=== PATIENT | female | born 1985 | race Caucasian/White ===

== ENCOUNTER → 2021-07-22 | Outpatient (CLI) | payer BC ==
--- NOTE | 2021-07-22 16:49 | Diagnostic Imaging Report ---
INDICATION: Routine screening. TECHNIQUE: Multiple Real-time grayscale images were obtained over the gravid uterus. COMPARISON: None. FINDINGS: A single live intrauterine fetus is in vertex presentation. No abnormalities were demonstrated. Structures visualized included kidney, bladder, stomach, ventricles, brain, four-chamber heart, three-vessel cord, spine, and cord insertion. Amniotic fluid index is normal. Normal heart rate. Biometrical measurements are as follows: Biparietal 4.39 cm, age 19 weeks 2 days. Head circumference 16.86 cm, age 19 weeks 4 days. Abdominal circumference 14.77 cm, age 20 weeks 1 days. Femur length 3.16 cm, age 19 weeks 6 days. Sonographic estimate age: 19 weeks 5 days. Sonographic estimated date of delivery: 12-11-21. Estimated Weight: 318 gm (+/- 47 gm). LMP percentile: <2%. heart rate: 134 beats per minute. number: 1 of 1. IMPRESSION: There is a single live intrauterine fetus. No abnormality is demonstrated. Current biometric measurements are average for a 19 week 5 day . Dictated by: Dictated on workstation # [id number]
== END ==
LOC: RAD 15:15
PROVIDERS: ATTEND Nurse Practitioner Women's Health
DX: Z34.82 Encounter for supervision of other normal pregnancy, second trimester (principal); Z3A.00 Weeks of gestation of pregnancy not specified
CPT/HCPCS: 76805

== ENCOUNTER 2021-12-20 06:28 | Inpatient (IN) | payer BC ==
[~2021-12-20] VITALS: Ht 160 cm; Wt 86.6 kg
[2021-12-20] VITALS (66 sets, daily range): BP systolic 101–158; BP diastolic 51–103
[2021-12-20] MEDS ORDERED: MONT-40 PO (06:47)
[2021-12-20] MEDS ORDERED: SERT-413 PO (06:47)
[2021-12-20] MEDS ORDERED: LEVO100C4 PO (06:47)
[2021-12-20] MEDS ORDERED: PREN-142 PO (06:47)
[2021-12-20] MEDS ORDERED: ACYC400T21 PO (06:47)
[2021-12-20] MEDS ORDERED: OXYTOCIN PRE-MIX DRIP 500 ML IV SCH ×2 (07:00→23:00)
[2021-12-20 07:53] LABS: BASOPHILS % (AUTO) 0 % (0-10); EOSINOPHILS # (AUTO) 0.1 10^3/uL (0.0-0.3); EOSINOPHILS % (AUTO) 1 % (0-10); HEMATOCRIT 35 % (35-52); HEMOGLOBIN 12.2 g/dL (11.5-16.0); LYMPHOCYTES # (AUTO) 1.5 10^3/uL (1.0-4.0); LYMPHOCYTES % (AUTO) 24 % (12-44); MEAN CORPUSCULAR HEMOGLOBIN 34 pg (25-34); MEAN CORPUSCULAR HGB CONC 35 g/dL (32-36); MEAN CORPUSCULAR VOLUME 97 fL (80-99); MEAN PLATELET VOLUME 11.7 fL (9.0-12.2); MONOCYTES # (AUTO) 0.6 10^3/uL (0.0-1.0); MONOCYTES % (AUTO) 10 % (0-12); NEUTROPHILS # (AUTO) 4.2 10^3/uL (1.8-7.8); NEUTROPHILS % (AUTO) 65 % (42-75); PLATELET COUNT 191 10^3/uL (130-400); WHITE BLOOD COUNT 6.4 10^3/uL (4.3-11.0)
[2021-12-20] MEDS: D5 LR IV SOLUTION 1,000 ML IV SCH ×2 (08:08→16:52)
--- NOTE | 2021-12-20 09:15 | History & Physical-OB ---
OB - Chief Complaint & HPI Date/Time Date of Admission: Date of Admission: December 20, 2021 at 06:28 Date seen by a Provider: December 20, 2021 Time Seen by a Provider: 07:30 Chief Complaint/History OB-Reason for Admission/Chief: Induction of Labor Hx : 4 Hx Para: 2 Expected Date of Delivery: Dec 11, 2021 Gestational Age in Weeks: 41 Gestational Age in Days: 2 Indication for induction: post dates Admission Nurse Assessment Rev: Yes Allergies and Home Medications Allergies Coded Allergies: No Known Drug Allergies (Unverified , 12/20/21) Patient Home Medication List Home Medication List Reviewed: Yes Acyclovir (Acyclovir) 400 Mg Tablet, 400 MG PO, (Reported) Entered as Reported by: RAVEN STRONG on 12/20/21646 Last Action: New Order Levothyroxine Sodium (Levothyroxine) 100 Mcg Capsule, 100 MCG PO, (Reported) Entered as Reported by: RAVEN STORNG on 12/20/21646 Last Action: New Order Montelukast Sodium (Montelukast Sodium) 10 Mg Tablet, 10 MG PO, (Reported) Entered as Reported by: RAVEN STRONG on 12/20/21646 Last Action: New Order Vit No.124/Iron/FA ( Vitamin Tablet) 27 Mg Iron-800 Mcg Tablet, 1 EACH PO, (Reported) Entered as Reported by: RAVEN STRONG on 12/20/21646 Last Action: New Order Sertraline HCl (Sertraline HCl) 50 Mg Tablet, 50 MG PO, (Reported) Entered as Reported by: RAVEN STRONG on 12/20/21646 Last Action: New Order OB - History Hx of Present Care: Yes Ultrasounds: Normal mid trimester US Obstetrical Complications: None Medical Complications: None Patient Past Medical History n/a OB - Admission Exam Physical Exam HEENT: NCAT Heart: Rhythm Normal Lungs: Clear Abdomen: Gravid Extremities: Normal Reflexes: Normal Cervical Dilatation: 3cm Effacement: 75% Station: -1 Membranes: Intact Heart Rate: 130's Accelerations: Accelerations Present Decelerations: No Decelerations Short Term Variability: Present Tempering Oven Operator Variability: Average (6-25) Contractions on Admission: 6-10 Minutes Apart Intensity: Mild Labs Laboratory Tests Test 12/20/21 07:30 Range/Units White Blood Count 6.4 4.3-11.0 10^3/uL Red Blood Count 3.62 L 3.80-5.11 10^6/uL Hemoglobin 12.2 11.5-16.0 g/dL Hematocrit 35 35-52 % Mean Corpuscular Volume 97 80-99 fL Mean Corpuscular Hemoglobin 34 25-34 pg Mean Corpuscular Hemoglobin Concent 35 32-36 g/dL Red Cell Distribution Width 13.0 10.0-14.5 % Platelet Count 191 130-400 10^3/uL Mean Platelet Volume 11.7 9.0-12.2 fL Immature Granulocyte % (Auto) 0 % Neutrophils (%) (Auto) 65 42-75 % Lymphocytes (%) (Auto) 24 12-44 % Monocytes (%) (Auto) 10 0-12 % Eosinophils (%) (Auto) 1 0-10 % Basophils (%) (Auto) 0 0-10 % Neutrophils # (Auto) 4.2 1.8-7.8 10^3/uL Lymphocytes # (Auto) 1.5 1.0-4.0 10^3/uL Monocytes # (Auto) 0.6 0.0-1.0 10^3/uL Eosinophils # (Auto) 0.1 0.0-0.3 10^3/uL Basophils # (Auto) 0.0 0.0-0.1 10^3/uL Immature Granulocyte # (Auto) 0.0 0.0-0.1 10^3/uL OB - Assessment/Plan/Diagnosis Assessment Assessment: induction of labor Admission Dx 36 yo @ 41 weeks Post dates GBS neg AMA Admission Status: Inpatient Order (span 2 midnights) Reason for Inpatient Admission: IOL at 41 weeks Plan Plan: Induction Induction Method: CYRUS VOSS DO December 20, 2021 09:15
[2021-12-20] MEDS ORDERED: CATHETER FLUSH 10 ML SYR IV SCH (14:00)
[2021-12-20] MEDS ORDERED: LIDOCAINE/EPI 2% 1:200,00 (XYLOCAINE) 10 ML VIAL ONE (19:23)
[2021-12-20] MEDS ORDERED: fentaNYL 2 mcg/ml BUPIVA 0.125 100 ML ONE (21:15)
[2021-12-20] MEDS ORDERED: BUPIVACAINE SPINAL 0.75% (SENSORCAINE) 2 ML AMP ONE (22:18)
[2021-12-20] MEDS ORDERED: TETANUS,DIPTH,PERTUSS P/F (BOOSTRIX) 0.5 ML VIAL IM ONE (23:00)
[2021-12-20] MEDS ORDERED: MEASLES,MUMPS,RUBELLA 1 EA INJ SQ ONE (23:00)
[2021-12-20] MEDS ORDERED: NALOXONE 0.4 MG/ML 1 ML (NARCAN) VIAL IV PRN (23:00)
[2021-12-20] MEDS ORDERED: DIBUCAINE 1% OINTMENT 30 GM TUBE TOP PRN (23:00)
[2021-12-20] MEDS ORDERED: BENZOCAINE/MENTHOL (DERMOPLAST) 56 ML CAN TP PRN (23:00)
[2021-12-20] MEDS ORDERED: WITCH HAZEL(TUCKS) 40 EA JAR TOP PRN (23:00)
--- NOTE | 2021-12-20 23:01 | OB Labor & Delivery Record ---
L&D History Date of Service Date of Service: December 20, 2021 History Expected Date of Delivery: Dec 11, 2021 Gestational Age in Weeks: 41 Hx : 4 Hx Para: 2 Complications Events: Routine care Operative Indications (Cesarea: N/A-Vaginal Delivery Intrapartal Events: None L&D Stage1 Stage One Onset of Labor - Date: December 20, 2021 Monitors and Tracing Monitor Mode: External Heart Rate: 120 Monitor Accelerations: Uniform Station: -1 Mix Crusher Operator Variability: Average (6-10) Short Term Variability: Present Presentation: Vertex Vital Signs VS - Last 72 Hours, by Label 12/20/21 12/20/21 12/20/21 12/20/21 07:20 08:00 08:15 08:30 Temp 36.0 36.0 Pulse 83 85 86 76 Resp 20 20 20 20 B/P (MAP) 130/70 (90) 129/84 (99) 114/76 (89) 111/70 (84) Pulse Ox 98 98 98 98 O2 Delivery Room Air Room Air Room Air Room Air 12/20/21 12/20/21 12/20/21 12/20/21 08:45 09:00 09:15 09:30 Temp 36.0 Pulse 73 81 74 79 Resp 20 20 20 20 B/P (MAP) 116/76 (89) 115/77 (90) 116/79 (91) 120/80 (93) O2 Delivery Room Air Room Air Room Air Room Air 12/20/21 12/20/21 12/20/21 12/20/21 10:00 10:15 10:30 10:45 Pulse 76 74 71 69 Resp 20 20 20 20 B/P (MAP) 112/68 (83) 109/72 (84) 121/77 (92) 119/81 (94) O2 Delivery Room Air Room Air Room Air Room Air 12/20/21 12/20/21 12/20/21 12/20/21 11:00 11:15 11:30 11:45 Temp 36.3 Pulse 72 71 74 83 Resp 20 20 20 20 B/P (MAP) 108/68 (81) 110/74 (86) 102/55 (71) 115/76 (89) O2 Delivery Room Air Room Air Room Air Room Air 12/20/21 12/20/21 12/20/2112/20/22 12:00 12:15 12:30 12:45 Pulse 81 80 93 77 Resp 20 20 20 20 B/P (MAP) 124/70 (88) 115/73 (87) 120/71 (87) 110/74 (86) O2 Delivery Room Air Room Air Room Air Room Air 12/20/21 12/20/21 12/20/21 12/20/21 13:05 13:15 13:30 13:45 Pulse 77 80 84 86 Resp 20 20 20 20 B/P (MAP) 115/71 (86) 106/66 (79) 115/77 (90) 116/70 (85) O2 Delivery Room Air Room Air Room Air Room Air 12/20/21 12/20/21 12/20/21 12/20/21 14:00 14:15 14:30 14:45 Temp 36.3 Pulse 73 78 76 71 Resp 20 20 20 20 B/P (MAP) 102/57 (72) 116/53 (74) 115/55 (75) 113/58 (76) O2 Delivery Room Air Room Air Room Air Room Air 12/20/21 12/20/21 12/20/21 12/20/21 15:00 15:15 15:30 15:45 Pulse 72 84 72 75 Resp 20 20 20 20 B/P (MAP) 101/58 (72) 107/57 (74) 129/81 (97) 131/82 (98) O2 Delivery Room Air Room Air Room Air Room Air 12/20/21 12/20/21 12/20/21 12/20/21 16:00 16:15 16:30 16:50 Temp 36.7 Pulse 74 76 74 68 Resp 20 20 20 20 B/P (MAP) 123/85 (98) 128/76 (93) 122/75 (91) 116/66 (83) O2 Delivery Room Air Room Air Room Air Room Air 12/20/21 12/20/21 12/20/21 12/20/21 17:00 17:15 17:30 17:45 Pulse 68 78 73 73 Resp 20 20 20 20 B/P (MAP) 121/80 (94) 121/80 (94) 138/85 (102) 121/77 (92) O2 Delivery Room Air Room Air Room Air Room Air 12/20/21 12/20/21 12/20/21 5/9/22 18:00 18:15 18:30 18:45 Pulse 81 78 78 81 Resp 20 20 20 20 B/P (MAP) 121/78 (92) 142/84 (103) 129/84 (99) 130/84 (99) O2 Delivery Room Air Room Air Room Air Room Air 12/20/21 12/20/21 12/20/21 12/20/21 19:00 19:15 19:30 19:45 Temp 36.8 Pulse 75 74 81 77 Resp 20 20 20 20 B/P (MAP) 142/82 (102) 136/86 (103) 132/79 (96) 136/81 (99) O2 Delivery Room Air Room Air Room Air Room Air Rupture of Membranes Spontaneous Ruture of Membrane: No Amniotic Membrane Rupture Time: 07 Amniotic Membrane Fluid Desc.: Clear Vaginal Bleeding Description: Normal Show Induction/Anesthesia Epidural Cath Placement - Time: 10:10 Progress/Notes Patient admitted for post dates IOL this AM, AROM and Pitocin started. She progressed throughout the day until this evening when she became acutely more uncomfortable and requested an epidural. She then rapidly progressed from 8-10 cm. L&D Stage2 Stage Two Stage II Date: December 20, 2021 Monitors and Tracing Monitor Mode: External Heart Rate: 120 Monitor Accelerations: Uniform Monitor Decelerations: Variable Snf Variability: Average (6-10) Short Term Variability: Present Position: Right Occiput Anterior Presentation: Vertex Cord Descript/Complications Cord Vessel Description: 3 Vessels Delivery Type Infant Delivery Method: Spontaneous Vaginal Anterior Shoulder: Left Episiotomy/Perineal Laceration Laceraction(s)/Extensions: Yes Episiotomy Description: Perineal Extension/lac, 2nd degree Degree (describe repair) laceration repaired using 3-0 and 2-0 vicryl suture in usual fashion. Condition of Infant Delivery 1 minute Comment: 7 5 minute Comment: 8 Notes live female weight 10lbs 2 oz Condition of Infant Condition of : Living Exam: No Observed Abnormalities Resuscitation Resuscitation: N/A - Spontaneous Resp L&D Stage3 Stage Three Stage III Date: December 20, 2021 Pictocin Pitocin Administration mu/min: 16 Pitocin ml/hr: 16 Pitocin Administration Comment: 30 mu wide open after delivery of placenta Placenta Delivery Placenta Delivery: Spontaneous Delivery Summary Summary Estimated blood loss (mL): 350 Attending at delivery: Cyrus Lane DO Condition of Delivery Examined: Cervix Examined, Uterus Explored Post Hemorrhage: No Condition of Mother stable Condition of (s) stable CYRUS LANE DO December 20, 2021 23:01
[2021-12-20] MEDS: IBUPROFEN 600 MG (MOTRIN) TAB PO SCH (23:45)
[2021-12-21] VITALS: BP 133/72
[2021-12-21] MEDS ORDERED: LACTATED RINGERS 1,000 ML IV ONE (01:00)
[2021-12-21] MEDS ORDERED: CATHETER FLUSH 10 ML SYR IV PRN (01:00)
[2021-12-21] MEDS ORDERED: fentaNYL 2 mcg/ml BUPIVA 0.125 100 ML IV SCH (01:00)
[2021-12-21] MEDS ORDERED: NALOXONE 0.4 MG/ML 1 ML (NARCAN) VIAL IV PRN (01:00)
[2021-12-21] MEDS ORDERED: fentaNYL 2 mcg/ml BUPIVA 0.125 100 ML EPI SCH (01:15)
[2021-12-21] MEDS ORDERED: OXYTOCIN PRE-MIX DRIP 500 ML IV ONE (04:23)
[2021-12-21] MEDS ORDERED: METHYLERGONOVINE 0.2 MG/ML (METHERGINE) AMP ONE (04:25)
[2021-12-21] MEDS ORDERED: METHYLERGONOVINE 0.2 MG/ML (METHERGINE) AMP IM ONE (04:30)
[2021-12-21] MEDS ORDERED: OXYTOCIN PRE-MIX DRIP 500 ML IV SCH (04:30)
[2021-12-21] MEDS: HYDROcodone/APAP 5 MG/325 MG (LORTAB) TAB PO PRN ×2 (04:51→23:15)
[2021-12-21 05:25] LABS: BASOPHILS % (AUTO) 0 % (0-10); EOSINOPHILS % (AUTO) 0 % (0-10); HEMATOCRIT 35 % (35-52); HEMOGLOBIN 11.7 g/dL (11.5-16.0); LYMPHOCYTES # (AUTO) 0.9 10^3/uL (1.0-4.0); LYMPHOCYTES % (AUTO) 4 % (12-44); MEAN CORPUSCULAR HEMOGLOBIN 33 pg (25-34); MEAN CORPUSCULAR HGB CONC 34 g/dL (32-36); MEAN CORPUSCULAR VOLUME 98 fL (80-99); MONOCYTES # (AUTO) 1.3 10^3/uL (0.0-1.0); MONOCYTES % (AUTO) 6 % (0-12); NEUTROPHILS # (AUTO) 19.3 10^3/uL (1.8-7.8); NEUTROPHILS % (AUTO) 89 % (42-75); PLATELET COUNT 193 10^3/uL (130-400); WHITE BLOOD COUNT 21.7 10^3/uL (4.3-11.0)
[2021-12-21 05:39] VITALS: BP 129/78
[2021-12-21] MEDS: IBUPROFEN 600 MG (MOTRIN) TAB PO SCH ×3 (05:39→18:24)
[2021-12-21] MEDS ORDERED: CATHETER FLUSH 10 ML SYR IV SCH (06:00)
[2021-12-21 06:01] LABS: LYMPHOCYTES % (MANUAL) 5 %; MONOCYTES % (MANUAL) 5 %; NEUTROPHILS % (MANUAL) 90 %; RBC MORPH NORMAL
[2021-12-21 08:00] VITALS: BP 113/64
[2021-12-21] MEDS: PRENATAL VITAMIN 1 EA TAB PO SCH (08:02)
[2021-12-21] MEDS: FERROUS SULF 325 MG (IRON) TAB PO SCH (08:02)
[2021-12-21] MEDS: DOCUSATE SODIUM 100 MG (COLACE) CAP PO SCH ×2 (08:02→23:15)
--- NOTE | 2021-12-21 09:56 | Anesthesia-Regional Post-Op ---
Regional Patient Condition Mental Status: Alert, Oriented x3 Circulation: Same as Pre-Op Headache: Absent Sensation: Full Recovery Motor Block: Absent Post Op Complications Complications None Follow Up Care/Instructions Patient Instructions None needed. Anesthesia/Patient Condition Patient is doing well, no complaints, stable vital signs, no apparent adverse anesthesia problems. No complications reported per nursing. YANI FRIEDMAN CRNA December 21, 2021 09:56
--- NOTE | 2021-12-21 10:07 | Postpartum Progress Note ---
Note Note Day # 1 Subjective: Patient is without complaints. Ambulating, voiding. Tolerating a regular diet without nausea or vomiting. Normal lochia. Pain is well controlled with oral pain medications. Breast feeding. Physical Exam: General - Alert and oriented, no apparent distress Abdomen - Soft, appropriately tender to palpation, non-distended, fundus firm at umbilicus Extremities - no edema, negative Domenica's bilaterally Assessment: Post- day # 1, status post vaginal delivery. Recovering well, hemodynamically stable Acute blood loss anemia Plan: Routine care. Encourage breast feeding. Encourage ambulation. Ferrous sulfate supplementation. Plan for discharge tomorrow Vitals - Labs Vital Signs - I&O Vital Signs Date Time Temp Pulse Resp B/P (MAP) Pulse Ox O2 Delivery O2 Flow Rate FiO2 12/21/21 05:39 36.8 84 20 129/78 (95) 96 Room Air 12/21/21 00:00 36.6 93 20 133/72 (92) Room Air 12/20/21 23:45 36.8 98 20 137/72 (93) Room Air 12/20/21 23:30 36.8 94 20 134/89 (104) Room Air 12/20/21 23:15 36.6 112 20 113/51 (71) Room Air 12/20/21 23:00 36.6 114 20 130/66 (87) Room Air 12/20/21 22:34 110 20 124/60 (81) Room Air 12/20/21 22:30 86 20 116/57 (76) 99 Room Air 12/20/21 22:15 98 20 127/72 (90) 99 Room Air 12/20/21 22:12 85 20 115/71 (86) 99 Room Air 12/20/21 22:09 79 20 129/82 (98) 100 Room Air 12/20/21 22:06 87 20 122/71 (88) 100 Room Air 12/20/21 22:00 36.6 95 20 123/86 (98) 100 Room Air 12/20/21 21:45 87 20 158/85 (109) 98 Room Air 12/20/21 21:30 84 20 141/88 (105) 100 Room Air 12/20/21 21:15 91 20 121/68 (85) 99 Room Air 12/20/21 21:00 90 20 99 Room Air 12/20/21 20:45 87 20 158/103 (121) Room Air 12/20/21 20:30 87 20 158/103 (121) Room Air 12/20/21 20:15 77 20 123/67 (85) Room Air 12/20/21 20:00 78 20 125/72 (89) Room Air 12/20/21 19:45 77 20 136/81 (99) Room Air 12/20/21 19:30 36.8 81 20 132/79 (96) Room Air 12/20/21 19:15 74 20 136/86 (103) Room Air 12/20/21 19:00 75 20 142/82 (102) Room Air 12/20/21 18:45 81 20 130/84 (99) Room Air 12/20/21 18:30 78 20 129/84 (99) Room Air 12/20/21 18:15 78 20 142/84 (103) Room Air 12/20/21 18:00 81 20 121/78 (92) Room Air 12/20/21 17:45 73 20 121/77 (92) Room Air 12/20/21 17:30 73 20 138/85 (102) Room Air 12/20/21 17:15 78 20 121/80 (94) Room Air 12/20/21 17:00 68 20 121/80 (94) Room Air 12/20/21 16:50 68 20 116/66 (83) Room Air 12/20/21 16:30 74 20 122/75 (91) Room Air 12/20/21 16:15 36.7 76 20 128/76 (93) Room Air 12/20/21 16:00 74 20 123/85 (98) Room Air 12/20/21 15:45 75 20 131/82 (98) Room Air 12/20/21 15:30 72 20 129/81 (97) Room Air 12/20/21 15:15 84 20 107/57 (74) Room Air 12/20/21 15:00 72 20 101/58 (72) Room Air 12/20/21 14:45 36.3 71 20 113/58 (76) Room Air 12/20/21 14:30 76 20 115/55 (75) Room Air 12/20/21 14:15 78 20 116/53 (74) Room Air 12/20/21 14:00 73 20 102/57 (72) Room Air 12/20/21 13:45 86 20 116/70 (85) Room Air 12/20/21 13:30 84 20 115/77 (90) Room Air 12/20/21 13:15 80 20 106/66 (79) Room Air 12/20/21 13:05 77 20 115/71 (86) Room Air 12/20/21 12:45 77 20 110/74 (86) Room Air 12/20/21 12:30 93 20 120/71 (87) Room Air 12/20/21 12:15 80 20 115/73 (87) Room Air 12/20/21 12:00 81 20 124/70 (88) Room Air 12/20/21 11:45 83 20 115/76 (89) Room Air 12/20/21 11:30 74 20 102/55 (71) Room Air 12/20/21 11:15 36.3 71 20 110/74 (86) Room Air 12/20/21 11:00 72 20 108/68 (81) Room Air 12/20/21 10:45 69 20 119/81 (94) Room Air 12/20/21 10:30 71 20 121/77 (92) Room Air 12/20/21 10:15 74 20 109/72 (84) Room Air I & O 12/21/21 07:00 Intake Total 1200 ml Output Total 515 ml Balance 685 ml Labs Laboratory Tests 12/21/21 05:00: White Blood Count 21.7H, Red Blood Count 3.53L, Hemoglobin 11.7, Hematocrit 35, Mean Corpuscular Volume 98, Mean Corpuscular Hemoglobin 33, Mean Corpuscular Hemoglobin Concent 34, Red Cell Distribution Width 13.1, Platelet Count 193, Mean Platelet Volume 12.0, Immature Granulocyte % (Auto) 1, Neutrophils (%) (Auto) 89H, Lymphocytes (%) (Auto) 4L, Monocytes (%) (Auto) 6, Eosinophils (%) (Auto) 0, Basophils (%) (Auto) 0, Neutrophils # (Auto) 19.3H, Lymphocytes # (Auto) 0.9L, Monocytes # (Auto) 1.3H, Eosinophils # (Auto) 0.0, Basophils # (Auto) 0.0, Immature Granulocyte # (Auto) 0.1, Neutrophils % (Manual) 90, Lymphocytes % (Manual) 5, Monocytes % (Manual) 5, Blood Morphology Comment NORMAL TERRY HENDRIX ACID CONDITIONER December 21, 2021 10:07
[2021-12-21 12:00] VITALS: BP 109/70
[2021-12-21 18:00] VITALS: BP 120/59
[2021-12-21 22:47] VITALS: BP 111/72
[2021-12-22] MEDS: IBUPROFEN 600 MG (MOTRIN) TAB PO SCH ×2 (00:04→08:53)
[2021-12-22 04:33] VITALS: BP 110/70
[2021-12-22 08:45] VITALS: BP 109/67
[2021-12-22] MEDS: FERROUS SULF 325 MG (IRON) TAB PO SCH (08:51)
[2021-12-22] MEDS: PRENATAL VITAMIN 1 EA TAB PO SCH (08:51)
[2021-12-22] MEDS: DOCUSATE SODIUM 100 MG (COLACE) CAP PO SCH (08:52)
[2021-12-22] MEDS: HYDROcodone/APAP 5 MG/325 MG (LORTAB) TAB PO PRN (09:00)
--- NOTE | 2021-12-22 10:04 | Postpartum Progress Note ---
Note Note Day # 2 Subjective: Patient is without complaints. Ambulating, voiding. Tolerating a regular diet without nausea or vomiting. Normal lochia. Pain is well controlled with oral pain medications. Breast feeding. Physical Exam: General - Alert and oriented, no apparent distress Abdomen - Soft, appropriately tender to palpation, non-distended, fundus firm at umbilicus Extremities - no edema, negative Domenica's bilaterally Assessment: Post- day # 2, status post vaginal delivery. Recovering well, hemodynamically stable Acute blood loss anemia Plan: Routine care. Encourage breast feeding. Encourage ambulation. Ferrous sulfate supplementation. Plan for discharge today Vitals - Labs Vital Signs - I&O Vital Signs Date Time Temp Pulse Resp B/P (MAP) Pulse Ox O2 Delivery O2 Flow Rate FiO2 12/22/21 04:33 36.5 80 18 110/70 (83) 99 Room Air 12/21/21 22:47 36.2 95 18 111/72 (85) 100 Room Air 12/21/21 18:00 36.8 100 18 120/59 (79) 99 Room Air 12/21/21 12:00 36.5 94 18 109/70 (83) 98 Room Air I & O 12/22/21 07:00 Intake Total 500 ml Balance 500 ml TERRY HENDRIX FASHION ILLUSTRATOR December 22, 2021 10:04
[2021-12-22] MEDS ORDERED: BENZ78AE5 TP (10:06)
[2021-12-22] MEDS ORDERED: ACHD5005 PO (10:06)
[2021-12-22] MEDS ORDERED: DIBU30OI TOP (10:06)
[2021-12-22] MEDS ORDERED: DOCU100C37 PO (10:06)
[2021-12-22] MEDS ORDERED: IBUP-844 PO (10:06)
[2021-12-22] MEDS ORDERED: WTCHGPD TOP (10:06)
--- NOTE | 2021-12-22 10:07 | Discharge Inst-Women's Service ---
Discharge Inst-Women's Serv Depart Medication/Instructions New, Converted or Re-Newed RX: Transmitted to Pharmacy Consults/Follow Up Additional Follow Up: Yes (6wk appt) Activity Activity: Activity as Tolerated Driving Instructions: No Driving for 1 Week NO SMOKING: NO SMOKING Nothing Inside Vagina: No Douching, No [place], No Tampons Diet Discharge Diet: No Restrictions Symptoms to Report to : Bleeding Excessive, Fever Over 101 Degrees F, Vaginal Bleeding Increase Skin/Wound Care Bathing Instructions: TERRY Diamond APPRAISAL MANAGER December 22, 2021 10:07
[2021-12-22 12:15] VITALS: BP 109/67
== END 2021-12-22 12:15 | disposition home or self-care (01) | DRG 806 ==
LOC: LDRP 06:28
PROVIDERS: ADMIT Obstetrics & Gynecology; ATTEND Obstetrics & Gynecology
PROC: 10E0XZZ Delivery of Products of Conception, External Approach (ICD-10-PCS; principal; 2021-12-20)
PROC: 0KQM0ZZ Repair Perineum Muscle, Open Approach (ICD-10-PCS; 2021-12-20)
PROC: 0W8NXZZ Division of Female Perineum, External Approach (ICD-10-PCS; 2021-12-20)
PROC: 10907ZC Drainage of Amniotic Fluid, Therapeutic from Products of Conception, Via Natural or Artificial Opening (ICD-10-PCS; 2021-12-20)
PROC: 3E033VJ Introduction of Other Hormone into Peripheral Vein, Percutaneous Approach (ICD-10-PCS; 2021-12-20)
DX: O48.0 Post-term pregnancy (principal); D62 Acute posthemorrhagic anemia; Z37.0 Single live birth; O98.32 Other infections with a predominantly sexual mode of transmission complicating childbirth; Z3A.41 41 weeks gestation of pregnancy; O70.1 Second degree perineal laceration during delivery; O90.81 Anemia of the puerperium; O99.284 Endocrine, nutritional and metabolic diseases complicating childbirth; E03.9 Hypothyroidism, unspecified; A60.09 Herpesviral infection of other urogenital tract; Z79.890 Hormone replacement therapy; Z79.899 Other long term (current) drug therapy
CPT/HCPCS: 36415; 85007; 85025; 85027; 86850; 86900; 86901